=== PATIENT | male | born 1950 | race Caucasian/White ===

== ENCOUNTER 2017-06-12 07:55 | Day surgery (SDC) | payer OTHER ==
--- NOTE | 2017-05-22 09:03 | HP ---
PREOPERATIVE HISTORY AND PHYSICAL: DATE OF ADMISSION/SURGERY: 06/12/17 [facility] DATE OF OFFICE VISIT: 05/18/17 PROCEDURE: Right shoulder arthroscopic rotator cuff repair, decompression, debridement, and subpectoral biceps tenodesis. ATTENDING SURGEON: Dr. Jose Chaves.* (DICTATED BY IMMANUEL MORENO) CHIEF COMPLAINT: Right shoulder. HISTORY OF PRESENT ILLNESS: Jesus is a 66-year-old male, who presents to the clinic for a followup calcific tendinitis. He got his third cortisone injection on 02/28/17. The patient states that it did help relieve the pain; however, the soreness has returned. He has noticed recent increase in pain. He has a significant pain especially if he uses it a lot and at night. He is unable to sleep on it. He reports intermittent numbness and tingling and states that he is ready for surgery. He denies fevers, chills. He is doing well otherwise. PAST MEDICAL HISTORY: Prostate disease, hypertension. PAST SURGICAL HISTORY: Neck diskectomy, right carpal tunnel release, left carpal tunnel release, left rotator cuff repair. The patient denies prior complications with anesthesia. MEDICATIONS: 1. Valium 5 mg 1 by mouth half hour before MRI. 2. Glucosamine 1 by mouth daily. 3. B complex 1 by mouth daily. 4. Wykoff-3 one by mouth daily. 5. Prostate Health 1 by mouth daily. 6. Aspirin 81 mg 1 by mouth daily. 7. Multivitamin 1 by mouth daily. 8. Calcium 1 by mouth daily. 9. Amlodipine besylate 1 by mouth daily. ALLERGIES: CIPROFLOXACIN. FAMILY HISTORY: Positive for heart disease. Denies family history of DVT or PE. SOCIAL HISTORY: He lives with his spouse. He is a former smoker, quit in 1975. He reports occasional alcohol consumption. He denies illegal drug use. REVIEW OF SYSTEMS: A 14-point review of systems was reviewed with the patient. Positive for intermittent numbness and tingling and current complaint, otherwise negative. Denies history of DVT, PE, history of bleeding disorder, fever, chills, chest pain, shortness of breath, history of HIV, or hep C. PHYSICAL EXAMINATION GENERAL: A 66-year-old, well-developed, well-nourished male, in no acute distress. Alert and oriented x3. Appropriate mood and affect. VITAL SIGNS: Height 67, weight 144, blood pressure 122/76, respiratory rate 18 , BMI 22.6. HEENT: Normocephalic, atraumatic. PERRLA. Throat: Clear. NECK: Supple. PULMONARY: Lungs are clear to auscultation bilaterally. No wheezing, rhonchi, or rales. CARDIO: Regular rate and rhythm. S1, S2. No murmurs, gallops, or rubs. No edema. ABDOMEN: Positive bowel sounds, soft, nontender. NEURO: Alert and oriented x3. Cranial nerves grossly intact. MUSCULOSKELETAL: Right upper extremity, skin is intact. No evidence of erythema. Mild tenderness over the subacromial space in the anterior joint line. Forward flexion 150, abduction 140, external rotation 70, internal rotation to T8. +5/5 strength on rotator cuff testing. Mildly positive Vicenta' s. Positive impingement, [place], Rodriguez, and Speed. +2 radial pulses. Sensation is intact to light touch distally. DIAGNOSTIC STUDIES: Multi-view x-rays revealed a diminished calcific lesion and MR arthrogram reveals no evidence of full-thickness rotator cuff tear. IMPRESSION: Right shoulder calcific tendinitis, possible rotator cuff tear, and biceps tendinitis. PLAN: The patient is scheduled to undergo right shoulder arthroscopic rotator cuff repair, decompression, debridement, and subpectoral biceps tenodesis with Dr. Chaves on 06/12/17. He will return to the office 10 to 14 days postop for followup and suture removal. Percocet was sent to the patient's pharmacy for postop pain meds. IMMANUEL MORENO [id number]/[facility] #: [id number] IVAN
[~2017-06-12 07:55] MED LIST: Buffered Lidocaine 0.9% SYRIN* 5 ML/SYR SYRINGE INTRADERM ONE; Dexamethasone IV* 4 MG/ML 1 ML (4 MG) IV SLOW PU ONE; Famotidine IV* 10 MG/ML 2 ML (20 mg) IV ONE
[2017-06-12] MEDS ORDERED: Bupivacaine 0.25% SDV* 30 ML ONE (08:03)
[2017-06-12] MEDS ORDERED: Dexamethasone IV* 4 MG/ML 1 ML (4 MG) ONE (08:06)
[2017-06-12] MEDS ORDERED: ceFAZolin 2 GM in 100 MLS NS (*) BAG IVPB ONE (08:06)
[2017-06-12] MEDS ORDERED: Famotidine IV* 10 MG/ML 2 ML (20 mg) ONE (08:06)
[2017-06-12] MEDS ORDERED: Midazolam* 1 MG/ML 10 ML VIAL (10 MG) ONE (09:10)
[2017-06-12] MEDS ORDERED: fentaNYL* 50 MCG/ML 2 ML VIAL (100 MCG VIAL) ONE ×2 (09:10→12:07)
[2017-06-12] MEDS ORDERED: Atracurium* 10 MG/ML 10 ML VIAL ONE (09:11)
[2017-06-12] MEDS ORDERED: ROPIVACAINE 5 MG/ML 30 ML BTL (0.5%) ONE (09:11)
[2017-06-12] MEDS ORDERED: Propofol* 10 MG/ML 20 ML BTL IV PUSH ONE ×2 (09:12→11:33)
[2017-06-12] MEDS ORDERED: Ondansetron INJ* 2 MG/ML VIAL ONE ×2 (09:12→11:33)
[2017-06-12] MEDS ORDERED: Ketorolac INJ* 30 MG/ML 1 ML VIAL ONE (09:12)
[2017-06-12] MEDS ORDERED: Phenylephrine INJ* 10 MG/ML 1 ML VIAL (10 MG) ONE (09:14)
[2017-06-12] MEDS ORDERED: EPHEDrine (Pressors)* 50 MG/ML VIAL ONE (09:14)
[2017-06-12] MEDS ORDERED: Ondansetron INJ* 2 MG/ML VIAL IV PRN (11:17)
[2017-06-12] MEDS ORDERED: fentaNYL* 50 MCG/ML 2 ML VIAL (100 MCG VIAL) IV PRN (11:17)
[2017-06-12] MEDS ORDERED: oxyCODONE/Acetamin 5/325 MG* TAB PO PRN (11:17)
[2017-06-12] MEDS ORDERED: Naloxone* 0.4 MG/ML 1 ML VIAL IV PRN (11:17)
[2017-06-12 12:54] VITALS: BP 142/82
--- NOTE | 2017-06-16 06:42 | OP ---
CC: PCP, * DATE OF OPERATION: 06/12/17 - [facility] DATE OF : 46 ATTENDING SURGEON: Jose Chaves MD. ADMINISTRATIVE PROGRAM SPECIALIST: IMMANUEL Contreras. An podiatrist assistant was needed for the entirety of the case to help with positioning, retraction, and utilized throughout all portions of case. ANESTHESIOLOGIST: Dr. Garibay. ANESTHESIA: General interscalene block. PRE-OP DIAGNOSES: Right shoulder calcific tendinitis with partial thickness tear of rotator cuff, bicipital tendinitis. POST-OP DIAGNOSES: High-grade partial thickness tear of the rotator cuff, resolved calcific lesion, bicipital tendinitis, glenohumeral osteoarthritis. OPERATIVE PROCEDURES: Right shoulder arthroscopy with: 1. Extensive glenohumeral debridement including chondroplasty. 2. Rotator cuff repair, supraspinatus, in double-row fashion. 3. Subacromial decompression with acromioplasty. 4. Biceps tenodesis, subpectoral. COMPLICATIONS: None. ESTIMATED BLOOD LOSS: Minimal. IMPLANTS USED: One Healicoil and one Multifix, one 2.8-mm Q-Fix anchor. INDICATIONS: Jesus Valadez is a 66-year-old male who has had a work-related injury since 2009, treated conservatively initially for calcific tendinitis. It progressed. He had persistent pain and has failed conservative management. He had reached the maximum amount of injections I would allow. Risks and benefits of surgery were discussed at length and included, but not limited to bleeding, infection, damage to nerves, vessels, surrounding structures, wound nonhealing, persistent pain, need for further surgery, scarring, stiffness, incomplete relief of symptoms, risks of anesthesia. DESCRIPTION OF PROCEDURE: The patient was greeted in the preoperative area by the attending surgeon. The correct extremity was marked and the consent was confirmed. The patient was then brought back to the operating suite where he was placed in the supine position on the operating table. He then underwent interscalene block by the anesthesiologist after which he was placed in the left lateral decubitus position. All bony prominences were padded. He was secured with a pegboard. His right arm was draped unsterile with 10 pounds of traction. The right shoulder was prepped and draped in the usual sterile fashion beginning with chlorhexidine soap, scrub, and alcohol wipe and a final prep with ChloraPrep. After appropriate surgical pause indicating site, side, procedure, and administration of antibiotics, a standard posterolateral portal was made sharply with 11 blade. Scope was introduced into the joint. The joint was examined. There was abundant synovitis and inflammation. He had areas of grade II changes to the glenohumeral joint with unstable flaps. The anterior, posterior, superior labrum had fraying. There was obvious tearing in the biceps tendon and partial tearing of the undersurface of the supraspinatus. Subscap was intact. There was abundant hyperemia and inflammation in the joint. The anterior portal was made in an outside-in fashion. A shaver was used to debride back the anterior, posterior, superior labrum, part of the biceps. Biceps was tenotomized. The undersurface of rotator cuff was examined. The subscapularis had about 5% tearing, which is debrided back. The undersurface of the subscap was also visualized and found to have no obvious tearing. A PDS suture was then used to suni the supraspinatus tendon to find out if there is a concomitant tear or thinning of the subacromial rotator cuff as well. After the debridement and chondroplasty was completed, attention was directed to subacromial space. The scope was introduced into the subacromial space. Lateral portal was made in an outside-in fashion. A shaver was used to debride the abundant bursa present. The rotator cuff was probed and found to have partial thickness tearing and and thinning. This was found to have high-grade partial thickness tear of the supraspinatus tendon. The undersurface of the acromion was then skeletonized using electrocautery device. Using a shaver, the johanna was then used to do an acromioplasty to remove the anterolateral spur. Attention was directed to the rotator cuff. The tear was completed using an 11 blade. The shaver was used to debride back the greater tuberosity as well as the supraspinatus tendon. The electrocautery device was also used to prepare the footprint as well as a rasp and 4.0 oval johanna to decorticate. One anchor was placed in the medial row of the greater tuberosity footprint. An awl was then used to do a microfracture to allow for further points of bone marrow aspiration and allow for further sites for healing. The sutures was then passed through the tendon in horizontal mattress configuration and the tied down. The sutures were then passed through a Multifix anchor, which was secured for a lateral row fixation. Final images were obtained. Attention was directed to the biceps. Bed was airplaned to the right side. The anterior aspect of the shoulder was prepared with ChloraPrep. A 15 blade was used to make the incision in line with the biceps tendon encompassing the inferior two-thirds of the pec tendon. The dissection was taken first through with the Rom and then once the fascia identified the remainder of dissection was done bluntly. Bicipital groove was palpated and biceps was moved through the wound. The bicipital groove was then prepared in usual fashion with electrocautery, rasp, and osteotome. The Q-Fix anchor was used to drill unicortically. The Q-Fix was deployed with excellent purchase. Sutures were then passed through the tendon 1 cm proximal to the musculo-tendinous junction in Nile-Braxton type configuration. The excess biceps was excised. The biceps was shuttled back in to the wound and then tied down. Wounds were copiously irrigated with sterile saline. The portals were closed with 3-0 nylon. The anterior wound was closed in layers with 2-0 Vicryl and 3-0 Monocryl. Sterile dressings were applied. The anterior wound was injected with 0.25% Marcaine plain. A Cryo/Cuff, UltraSling were applied. He was woken from anesthesia and transferred to PACU in stable condition. POSTOPERATIVE PLAN: He will be discharged on pain medications and antibiotics. DVT prophylaxis was considered, but deferred due to no previous personal or family history. He will stay in the sling for 6 weeks. I will see the patient back in 14 days. [id number]/[facility] #: [id number] IVAN
== END 2017-06-12 12:49 | disposition home or self-care (01) ==
LOC: OREAST 07:55
PROVIDERS: ATTEND Orthopaedic Surgery
DX: S46.011A Strain of muscle(s) and tendon(s) of the rotator cuff of right shoulder, initial encounter (principal); M75.21 Bicipital tendinitis, right shoulder; M19.011 Primary osteoarthritis, right shoulder; G89.18 Other acute postprocedural pain; I10 Essential (primary) hypertension; Z87.891 Personal history of nicotine dependence; X58.XXXA Exposure to other specified factors, initial encounter; Y92.89 Other specified places as the place of occurrence of the external cause; Y99.0 Civilian activity done for income or pay
CPT/HCPCS: C1713; C1776; J1100; J1885; J2250; J2405; J2704; J2795; J3010